=== PATIENT | female | born 1965 | race Caucasian/White ===

== ENCOUNTER 2021-08-09 13:21 | Outpatient (REF) | payer OTHER, SELFPAY ==
--- NOTE | ~2021-08-09 | XR_ITS ---
EXAMINATION: XR FOOT, LEFT CLINICAL INFORMATION: Pain. COMPARISON: None TECHNIQUE: AP, lateral, and oblique views of the left foot. FINDINGS: No acute fractures or malalignment. Mild multifocal degenerative osteoarthritis with minimal joint space narrowing and tiny osteophytes. No erosions. Calcifications at the insertion site of the Achilles tendon posterior to the calcaneus. Mild diffuse soft tissue swelling. XR/XR foot LT min 3V IMPRESSION: No acute fractures or malalignment. Mild multifocal osteoarthritis. Calcific tendinosis at the insertion site of the Achilles tendon. Nonspecific diffuse soft tissue swelling.
== END 2021-08-09 13:22 | disposition home or self-care (01) ==
LOC: HO.XRAY 13:21
PROVIDERS: PCP Internal Medicine; Visit Provider Psychiatry & Neurology Neurology
DX: M79.672 Pain in left foot (principal)
CPT/HCPCS: 73630